=== PATIENT | female | born 2000 | race Caucasian/White ===

== ENCOUNTER 2018-05-16 14:24 | Outpatient (REF) | payer MEDICAID, SELFPAY ==
[2018-05-17 14:23] LABS: Chlamydia Result Positive; GC Result Negative
== END 2018-05-16 14:44 ==
LOC: LBN 14:24
PROVIDERS: PCP Nurse Practitioner Pediatrics; Visit Provider Nurse Practitioner Family
DX: Z11.3 Encounter for screening for infections with a predominantly sexual mode of transmission (principal)
CPT/HCPCS: 87491; 87591

== ENCOUNTER 2018-06-27 15:52 | Outpatient (REF) | payer MEDICAID, SELFPAY ==
[2018-06-28 12:28] LABS: Chlamydia Result Negative; Specimen Description URINE
== END 2018-06-27 16:12 ==
LOC: LBN 15:52
PROVIDERS: PCP Nurse Practitioner Pediatrics; Visit Provider Nurse Practitioner Family
DX: Z11.3 Encounter for screening for infections with a predominantly sexual mode of transmission (principal)
CPT/HCPCS: 87491

== ENCOUNTER 2018-11-05 18:30 | Emergency (ER) | payer OTHER, MEDICAID, SELFPAY ==
[2018-11-05 18:26] VITALS: BP 121/92; PULSE 107; RESP 16; TEMP 36.9; O2SAT 99
--- NOTE | 2018-11-05 19:13 | DI.RAD_ITS ---
SYMPTOM/DIAGNOSIS: OPEN DISLOCATION RIGHT LITTLE FINGER: There is a dorsal dislocation at the fifth proximal interphalangeal joint with an apparent proximal override of approximately 7 mm. of the middle phalanx. There is exposure of the proximal phalangeal head. Soft tissue swelling is identified. There is no definite fracture. SUMMARY: Dorsal dislocation of the fifth proximal interphalangeal joint at least 7 mm. proximal override of the middle phalanx. As noted above, the proximal phalangeal head is exposed. There is no definite fracture demonstrated.
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
--- NOTE | 2018-11-05 19:39 | NUR.NOTE ---
AT BEDSIDE PLACING SUTURES Nursing Note:
[2018-11-05] MEDS: ceFAZolin 2,000 MG in Normal Saline 100 ML 200 MG IVPB (19:40)
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
--- NOTE | 2018-11-05 20:00 | NUR.NOTE ---
at [facility] plcaing sutures to r jyotsna finger Nursing Note:
--- NOTE | 2018-11-05 20:25 | NUR.NOTE ---
r pinkly dressing applied splint placed on finger as per mdo Nursing Note:
--- NOTE | 2018-11-05 20:36 | NUR.NOTE ---
pt dc home iv removed dc/rx reviewed with pt able to verblize understanding Nursing Note:
== END 2018-11-05 20:39 | disposition home or self-care (01) ==
LOC: ER 20:03
PROVIDERS: Emergency Provider Student in an Organized Health Care Education/Training Program; PCP Nurse Practitioner Pediatrics
DX: S63.286A Dislocation of proximal interphalangeal joint of right little finger, initial encounter (principal); S61.316A Laceration without foreign body of right little finger with damage to nail, initial encounter; V43.52XA Car driver injured in collision with other type car in traffic accident, initial encounter
CPT/HCPCS: 12001; 26770; 90471; 96365; 99284; 73140; J0690

== ENCOUNTER 2018-11-28 11:25 | Outpatient (CLI) | payer MEDICAID, SELFPAY ==
--- NOTE | 2018-11-28 10:56 | DI.RAD_ITS ---
SYMPTOM/DIAGNOSIS: F/U RIGHT LITTLE FINGER: Three views were obtained. There is soft tissue swelling most prominent in the region of the PIP joint. There is question of minimal deformity of the volar aspect of the base of the middle phalanx with question of tiny, very faint ossific densities in the soft tissues. The findings may represent a tiny volar avulsion or chip fracture. No additional bony abnormality is seen.
== END 2018-11-28 11:45 ==
PROVIDERS: PCP Nurse Practitioner Pediatrics; Visit Provider Orthopaedic Surgery
DX: S63.276A Dislocation of unspecified interphalangeal joint of right little finger, initial encounter; M79.89 Other specified soft tissue disorders
CPT/HCPCS: 73140

== ENCOUNTER 2019-01-09 19:14 | Outpatient (REF) | payer MEDICAID, SELFPAY ==
[2019-01-13 13:17] LABS: Chlamydia Result Negative; GC Result Negative; Specimen Description CERVIX
== END 2019-01-09 19:34 ==
LOC: NCHCN 19:14
PROVIDERS: PCP Nurse Practitioner Pediatrics; Visit Provider Obstetrics & Gynecology
DX: N94.10 Unspecified dyspareunia (principal)
CPT/HCPCS: 87491; 87591